=== PATIENT | female | born 1940 | race African-American/Black ===

== ENCOUNTER 2024-11-09 18:51 | Emergency (ER) | payer MEDICARE ==
[~2024-11-09] VITALS: Ht 167.6 cm; Wt 82.0 kg
[~2024-11-09 18:51] MED LIST: ACET-2708 MT; ALLO300T2 MT; COR3 PO; FAMO-135 PO; LIP40 PO; MECL-299 PO; PIOG15TA68 MT; REPA1TAB5 MT
[2024-11-09 19:01] VITALS: O2SAT 94
[2024-11-09] MEDS ORDERED: LIDOCAINE 5% PATCH TOP SCH (19:30)
[2024-11-09] MEDS ORDERED: KETOROLAC 30MG/ML VIAL IM ONE (19:30)
[2024-11-09] MEDS ORDERED: DICL100G58 TP (22:10)
[2024-11-09] MEDS ORDERED: LIDO700A30 TP (22:10)
[2024-11-09 22:40] VITALS: BP 125/65; PULSE 79; RESP 20; TEMP 37; O2SAT 99
== END 2024-11-09 22:41 | disposition home or self-care (01) ==
LOC: ER 18:51
DX: M17.11 Unilateral primary osteoarthritis, right knee (principal); M85.80 Other specified disorders of bone density and structure, unspecified site; E11.9 Type 2 diabetes mellitus without complications; I10 Essential (primary) hypertension; Z79.899 Other long term (current) drug therapy; Z79.84 Long term (current) use of oral hypoglycemic drugs
CPT/HCPCS: 73502; 73562; 99284